=== PATIENT | female | born 1985 | race Caucasian/White ===

== ENCOUNTER → 2017-07-26 | Outpatient (CLI) | payer SELFPAY | LOC: RAD 14:02 | PROVIDERS: ATTEND Specialist | DX: Z36.89 Encounter for other specified antenatal screening (principal) ==

== ENCOUNTER 2017-08-19 06:29 | Inpatient (IN) ==
[2017-08-19] MEDS ORDERED: D5LR 1L W PITOCIN 10 UNITS/L 10 UNITS/1,000 ML BAG IV ONE (06:38)
[2017-08-19] MEDS ORDERED: D5 1/2 NS 1L W PITOCIN 20 UNITS/L 20 UNITS/1,000 ML BAG IV ONE (06:38)
[2017-08-19] MEDS ORDERED: PITOCIN ONE (06:38)
[2017-08-19] MEDS ORDERED: D5 1/2 NS 1000 ML 1,000 ML IV ONE (06:39)
--- NOTE | 2017-08-19 07:00 | DR.OB ---
OB Quick Note - Assessment/Plan Assessment/Plan: L&D 08/19/17 at 6:50am S-No complaint. O-Afebrile,VSS MAE=526 with good LTV, +accel, no decel. CTX=occasional,mild CVX=2-3cm/50%/-1/VTX AROM with clear fluid. IUPC and FSE placed. A-IUP at 39 5/7 weeks for induction A1DM Rh- GERD P-Begin pitocin induction Anticipate
[2017-08-19] MEDS ORDERED: MORPHINE SULFATE INJ 2 MG INJ IVP PRN (07:13)
[2017-08-19] MEDS ORDERED: NUBAIN INJ 200 MG VIAL MULTIDOSE IVP PRN (07:13)
[2017-08-19] MEDS ORDERED: REGLAN INJ 10 MG VIAL IVP PRN ×2 (07:13→12:48)
[2017-08-19] MEDS ORDERED: PITOCIN IVP ONE (07:13)
[2017-08-19] MEDS ORDERED: PHENERGAN INJ 25 MG IV PRN ×3 (07:13→12:48)
[2017-08-19] MEDS ORDERED: D5 1/2 NS 1000 ML 1,000 ML IV SCH (07:13)
[2017-08-19] MEDS ORDERED: D5LR 1L W PITOCIN 10 UNITS/L 10 UNITS/1,000 ML BAG IV PRN (07:13)
[2017-08-19] MEDS ORDERED: LR 1000 ML IV 1,000 ML IV ONE (08:00)
[2017-08-19] MEDS ORDERED: NAROPIN EPIDURAL 0.2% + FENTANYL 90MCG 60 ML EPI ONE (08:00)
[2017-08-19] MEDS ORDERED: FENTANYL INJ 100 mcg ONE (08:03)
[2017-08-19] MEDS ORDERED: ZOFRAN INJ 4 MG VIAL ONE (09:11)
[2017-08-19] MEDS ORDERED: MOTRIN TAB 800 MG PO PRN (11:19)
[2017-08-19] MEDS ORDERED: D5 1/2 NS 1000 ML 1,000 ML with PITOCIN 20 UNITS IV SCH ×2 (12:00)
[2017-08-19] MEDS ORDERED: DERMOPLAST SPRAY ONE (12:31)
[2017-08-19] MEDS ORDERED: AMBIEN PO PRN (12:48)
[2017-08-19] MEDS ORDERED: ADACEL or BOOSTRIX TDaP VACCINE IM ONE (12:48)
[2017-08-19] MEDS ORDERED: MILK OF MAGNESIA PO PRN (12:48)
[2017-08-19] MEDS ORDERED: HYPERRHO S/D (or RHOGAM) IM PRN (12:48)
[2017-08-19] MEDS ORDERED: DERMOPLAST SPRAY TOP PRN (12:48)
[2017-08-19] MEDS ORDERED: BENADRYL INJ 50 MG VIAL IVP PRN (13:13)
[2017-08-19] MEDS ORDERED: BENADRYL CAP/TAB 25 MG PO PRN (13:14)
[2017-08-19] MEDS ORDERED: NARCAN INJ IVP PRN (15:05)
--- NOTE | 2017-08-19 16:12 | DR.OB ---
OB Quick Note - Assessment/Plan Assessment/Plan: Delivery Note [employer] 08/19/17 at 11:04am Patient complete and pushing. Head delivered over intact perineum. No nuchal cord. Nose and mouth bulb suctioned. Left hand noted at face (compound presentation). Body delivered over intact perineum. Cord clamped x 2 and cut. handed to attendant. Cord sent for gases. Placenta delivered spontaneously / intact / 3 vessel cord. No CVX tears. A small second degree tear noted on right that was repaired with 0-vicryl in usual fashion. Viable male delivered spontaneously, VTX/OA, wt=7'13" and 9/9, stable to NBN. Mother stable to RR. WER=775cg.
[2017-08-19] MEDS: ZANTAC PO SCH (20:02)
[2017-08-19] MEDS: MOTRIN TAB 800 MG PO PRN (20:02)
[2017-08-19] MEDS: D5 1/2 NS 1000 ML 1,000 ML with PITOCIN 20 UNITS IV SCH ×2 (20:03)
[2017-08-20] MEDS: D5 1/2 NS 1000 ML 1,000 ML with PITOCIN 20 UNITS IV SCH ×2 (05:42)
[2017-08-20 05:47] LABS: HEMOGLOBIN 11.4 g/dL (12.0-16.0)
[2017-08-20 08:02] VITALS: BP 99/60
[2017-08-20] MEDS: ZANTAC PO SCH (08:44)
[2017-08-20] MEDS ORDERED: PRENATAL PLUS PO SCH (09:00)
[2017-08-20] MEDS: MOTRIN TAB 800 MG PO PRN (11:30)
== END 2017-08-20 13:55 | disposition home or self-care (01) | DRG 775 ==
LOC: LD 06:29 → MED/SURG 12:26
PROVIDERS: ADMIT Specialist; ATTEND Specialist
DX: O36.0930 Maternal care for other rhesus isoimmunization, third trimester, not applicable or unspecified; O70.1 Second degree perineal laceration during delivery; Z23 Encounter for immunization; Z37.0 Single live birth; Z3A.39 39 weeks gestation of pregnancy; O99.613 Diseases of the digestive system complicating pregnancy, third trimester; O24.410 Gestational diabetes mellitus in pregnancy, diet controlled
CPT/HCPCS: 36415; 59409; 85014; 85018; 86850; 86900; 86901; A4222; S0197; J1200; J2310; J2405; J2590; J2790; J3010; J7120; S5010